=== PATIENT | male | born 1975 | race Hispanic/Latino ===

== ENCOUNTER 2016-08-17 19:06 | Inpatient (IN) | payer OTHER ==
[~2016-08-17] VITALS: Ht 175.3 cm; Wt 65.2 kg
[~2016-08-17 19:06] MED LIST: ALBU18HF INH; ALBU8.5H2 INHALATION; BECL8.7A6 INH; HYDR-656 PO; LORA-303 PO; MIRT15TA PO; MIRT15TA6 PO
[2016-08-17 19:21] VITALS: BP 114/77; PULSE 96; RESP 20; O2SAT 93
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
[2016-08-17] MEDS ORDERED: cefTRIAXone Inj 2,000 MG in IV Premix 1 EACH IV ONE (20:55)
[2016-08-17 21:14] VITALS: BP 118/78; PULSE 91; RESP 16; O2SAT 95
[2016-08-17 21:24] LABS: BASOPHILS % (AUTO) 0.1 % (0-3); EOSINOPHILS % (AUTO) 0.1 % (0-5); MONOCYTES % (AUTO) 2.4 % (4-12); Mean Corpuscular Hemoglobin 30.9 pg (27.0-35.0); Mean Corpuscular Volume 87.7 fL (81-100); NEUTROPHILS % (AUTO) 94.9 % (40-74); Platelet Count 209 bil/L (150-400)
[2016-08-17] MEDS ORDERED: 0.9% Sodium Chloride 1,000 ML IV SCH (21:30)
[2016-08-17] MEDS ORDERED: Albuterol 2.5 mg/3 mL Inhalation Solution NEB ONE (22:15)
[2016-08-17 22:20] VITALS: BP 117/75; PULSE 84; RESP 18; O2SAT 95
[2016-08-17 22:34] VITALS: PULSE 80; RESP 18; O2SAT 100
[2016-08-17] MEDS ORDERED: Albuterol 2.5 mg/3 mL Inhalation Solution NEB PRN (23:00)
[2016-08-17] MEDS ORDERED: Polyethylene Glycol (PEG) 17 Gm Powder PO PRN (23:00)
[2016-08-17] MEDS ORDERED: Alum-Mag Hydrox-Simeth 30 mL Suspension PO PRN (23:00)
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
[2016-08-17 23:19] VITALS: BP 122/76; PULSE 94; RESP 18; O2SAT 94
[2016-08-17 23:21] LABS: INR 1.12 ratio
[2016-08-17 23:35] LABS: Magnesium 2.3 mg/dL (1.6-2.6)
[2016-08-18] VITALS (13 sets, daily range): BP systolic 104–119; BP diastolic 66–81; PULSE 70–96; RESP 16–18; O2SAT 92–97
[2016-08-18 01:50] LABS: APPEARANCE,URINE CLEAR (CLEAR,HAZY); COLOR,URINE YELLOW (YELLOW); OCCULT BLOOD,URINE LARGE (NEGATIVE); PH,URINE 6.5 (5.0-8.0); UROBILINOGEN,URINE NORMAL (NORMAL)
--- NOTE | 2016-08-18 01:57 | NUR ---
Admit Note Pt arrived to room 3006, alert and oriented. Pulled IV out accidently, new one restarted with some difficulty. IV antibiotics now complete. SBA to bathroom due to weakness.
[2016-08-18] MEDS ORDERED: BUSP5TAB3 PO (03:59)
[2016-08-18] MEDS ORDERED: LORA1TAB (03:59)
[2016-08-18] MEDS ORDERED: IBUP800T28 PO (03:59)
[2016-08-18] MEDS ORDERED: HYDR-4003 PO (03:59)
[2016-08-18] MEDS: Albuterol-Ipratropium 3 mL Inhalation Solution NEB SCH ×5 (06:15→20:22)
[2016-08-18] MEDS ORDERED: HYDROXYZINE HCL 25 MG PO PRN (06:45)
--- NOTE | 2016-08-18 06:47 | NUR ---
Refused RT Per RT patient refused treatment because it "makes him sick". Then not even 30 min later pt very agitated and saying "I am going to here like my mother did" and yelling out to other nurse and DIRECTOR STAGE, Pt aggrevated that he cannot breath and cannot even get a respiratory treatment. paged as pt requesting Ibuprofen and "other medications". No answer yet from . Will pass on to dayshift RN to resolve.
[2016-08-18 08:20] LABS: EOSINOPHILS % (AUTO) 0 % (0-5); Mean Corpuscular Hemoglobin 31.2 pg (27.0-35.0); Mean Corpuscular Volume 87.3 fL (81-100); Platelet Count 201 bil/L (150-400)
[2016-08-18] MEDS: Fluticasone 100 mCg Inhaler INHALATION SCH (08:30)
[2016-08-18] MEDS ORDERED: Influenza (Adult) Vaccine 0.5 mL Syringe IM ONE (08:30)
[2016-08-18] MEDS: Azithromycin Inj 500 MG in Dextrose 5% w/Vial Mate 250 ML IV SCH (08:48)
[2016-08-18 08:52] LABS: Magnesium 2.2 mg/dL (1.6-2.6); Phosphorus 2.7 mg/dL (2.5-4.9)
[2016-08-18 08:57] LABS: BASOPHILS % (AUTO) 0 % (0-3); MONOCYTES % (AUTO) 3 % (4-12); NEUTROPHILS % (AUTO) 81 % (40-74)
[2016-08-18] MEDS ORDERED: PRED50TA PO (09:15)
[2016-08-18] MEDS ORDERED: LEVO500T79 PO (09:15)
[2016-08-18] MEDS ORDERED: ONDA4TAB12 PO (09:15)
--- NOTE | 2016-08-18 09:24 | NUR ---
Social Work: Screening Data: Pt is a 41 y/o male admitted for pneumonia post influenze with hemoptysis. Pt's PCP is not listed, pt's insurance is [facility]. EMR reviewed. Per H&P, pt has history of alcohol and marijuana use but does not specify amounts. CD assessment may be needed for pt. TITLE LAWYER will continue to follow. Likely no D/C planning needs. Assessment: Pt who is independent at baseline. Plan: Pt will d/c home via POV when medically stable. TITLE LAWYER will check in regarding alcohol and marijuana use. TITLE LAWYER will continue to follow. THERESA Lin
[2016-08-18] MEDS ORDERED: LORazepam 1 mg Tablet PO ONE ×3 (09:25→19:33)
--- NOTE | 2016-08-18 09:54 | DRSVH ---
PROCEDURE: X-RAY CHEST ONE VIEW, PORTABLE ([id number]) INDICATIONS: dyspnea TECHNIQUE: One view of the chest was acquired. COMPARISON: None. FINDINGS: Surgical changes and devices: None. Lungs and pleura: Patchy infiltrate in the right lower lobe and right middle lobe are present consist ent with right-sided pneumonia. Compared to the film earlier in the day the no change is seen. Mediastinum: Mediastinal contours appear normal. Heart size is normal. Bones and chest wall: No suspicious bony lesions. Overlying soft tissues appear unremarkable. IMPRESSION: Right lower lobe pneumonia. Unchanged since the film 12 hours prior. Dictated by: Gabino Buchanan M.D. on 08/18/2016 at 9:52 Approved by: Gabino Buchanan M.D. on 08/18/2016 at 9:52
[2016-08-18] MEDS ORDERED: Thiamine Inj 100 MG, Folic Acid Inj 1 MG, Magnesium Sulfate 50% Inj 2 GM, Multivitamins... IV ONE ×5 (10:40)
[2016-08-18] MEDS: hydrOXYzine Pamoate 25 mg Capsule PO PRN ×2 (11:58→19:38)
[2016-08-18] MEDS ORDERED: HYDROcodone-APAP 5-325 mg Tablet PO ONE ×2 (11:59→23:03)
[2016-08-18] MEDS: LORazepam 1 mg Tablet PO PRN ×2 (11:59→19:38)
[2016-08-18] MEDS: HYDROcodone-APAP 5-325 mg Tablet PO PRN ×3 (11:59→23:59)
--- NOTE | 2016-08-18 16:17 | PCM.PNMED ---
Subjective Date of Service Aug 18, 2016 Subjective Overnight: No acute events reported Today: States he is upset regarding medication delivery. Health concerns include his general fatigue, chills. Denies any nausea, vomiting; tolerating po well. Exam Vital Signs Vital Sign - Last Date Time Temp Pulse Resp B/P Pulse Ox O2 Delivery O2 Flow Rate FiO2 08/18/16 14:36 36.2 83 16 111/69 92 Room Air Intake and Output 08/17/16 08/17/16 08/18/16 Cumulative From/Thru 15:00 23:00 07:00 08/17/16 19:21 - 08/18/16 05:00 Intake Total 2000 ml 436 ml 2436 ml Output Total 1000 ml 1000 ml Balance 2000 ml -564 ml 1436 ml Intake Oral 436 ml 436 ml IV Total 2000 ml 2000 ml Output Urine Total 1000 ml 1000 ml Exam General: No acute distress, well-developed, well-nourished HEENT: Normocephalic, atraumatic. Anicteric sclerae, moist conjunctivae. Oropharynx free of erythema with moist mucosa. Neck: Supple. Trachea midline Cardiovascular: Regular rate and rhythm with no murmurs, rubs, or gallops appreciated Pulmonary: BL coarse sounds at bases to midfields; faint BL upper wheeze Abdomen: Bowel tones present. Soft. Nondistended. Extremities: No edema Skin: Normal temperature, turgor, and texture Neurological: Cranial nerves grossly intact. Psychiatric: Improved mood. Alert and oriented to person, place, and time. Lab and Diagnostics Result Diagram: 08/18/16 0751 08/18/16 0751 X-Rays, CTs and MRIs Prelim for CXR shows RLL infiltrate 12-lead ECG Pending Assessment & Plan Mr. Ulloa is a 41 year old gentleman with history of EtOH use disorder, opiate use, and reported recent infection with influenza, that was treated with Tamiflu without resolution of symptoms. He stated that his symptoms of fever, chills, SOB, and generalized pain returned, and he sought emergent care. He was admitted for evaluation and treatment of suspected secondary bacterial PNA with primary influenza infection. - Hospital day 2 Strep pneumoniae pneumonia, acute, present on admission. Under therapy - S pneu Ur 08/18: POSITIVE - Ceftriaxone 2g q24h - Convert to po in 1-2 days Influenza infection of unknown strain, acute, suspected present on admission. Under therapy - Reports recent infection and tx with Tamiflu - Continue Tamiflu - Resp PCR Right lower lobe PNA, acute, present on admission. Under therapy - Likely secondary to one or both from above - CXR 08/17: RLL PNA seen - Continue ceftriaxone, azithromycin at this time, awaiting PCR - PNA can be multifactorial: S. pneu, influenza A, other viral source; await all test results - Duonebs QIDWA - Accunebs q2h prn - Tessalon perles - Mucinex 1200mg q12h - PCT in am (previous 2.88, 3.40) Hyponatremia, acute, present on admission. Resolved - On admit: 130; current 135 - Recheck in a.m. Acute hemoptysis, present on admission. Resolving - Likely secondary to coughing spells - Avoid anticoagulants at this time History of EtOH abuse, present on admission. Presumed stable - Pt reports last drink 08/02/2016 - CIWA in place - Continue thiamine/folate/MV at DC Tobacco abuse, chronic. Presumed stable - Nicotine patch prn - Cessation provided Right fifth metacarpal fracture, acute, present on admission. Monitor - Pt reports has FU with ortho Friday, 08/20; not verified - If pt still hospitalized 08/20- consult ortho - PRN: Fever/antiemetics/pain/bowel - GI: H2B - DVT: SCDs only secondary to reported hemoptysis - Diet: General - Code: FULL CODE Dispo: Likely to remain additional 1-2 days pending medical stability and test results. With current information, can transition to po abx for DC. Anticipated needs include EtOH, tobacco resources, if patient willing to accept. He states he has made significant progress in life improvements. Pain Evaluation: Adequate Pain Control GI Prophylaxis: H2 ezra VTE Mechanical Devices: Intermittant Pneumatic CD Resuscitation Status: CPR: Attempt Resuscitation Attending Statement The patient was seen and examined together with Dr. Braga on 08/18/2016 and I agree with the history, exam and plan as outlined in the note above. Sunni Braga DO Aug 18, 2016 16:17 Jose Ingram MD Aug 19, 2016 09:11
--- NOTE | 2016-08-18 16:27 | NUR ---
CIWA CIWA protocol started due to patient history of alcohol and marijuana use. Patient current CIWA 1, highest CIWA score this shift 6. Difficult to assess whether current agitation/irritability, tremor is baseline or substance use. Patient overheard on phone, requested going to rehab as a Deangelo present.
[2016-08-18] MEDS: guaiFENesin 600 mg ER12 Tablet PO SCH (19:38)
[2016-08-18] MEDS: cefTRIAXone Inj 2,000 MG in IV Premix 1 EACH IV SCH (19:39)
[2016-08-19] VITALS (13 sets, daily range): BP systolic 112–145; BP diastolic 76–93; PULSE 69–94; RESP 16–18; O2SAT 95–99
[2016-08-19] MEDS: Albuterol-Ipratropium 3 mL Inhalation Solution NEB SCH ×6 (00:30→20:09)
[2016-08-19] MEDS ORDERED: LORazepam 1 mg Tablet PO ONE ×2 (03:46→15:31)
[2016-08-19] MEDS: LORazepam 1 mg Tablet PO PRN ×3 (04:00→15:55)
--- NOTE | 2016-08-19 04:55 | NUR ---
CIWA/pain CIWA score was 1. Ativan given x2 this shift per pt's request for anxiety - effective. Ibuprofen and [place] given per pt's request for R pinky and back pain with good relief. Pt has been independent in the room w/o SOB and with steady gait. SpO2 in mid 90s on RA. still has sharif/beasley sputum. VSS, afebrile.
[2016-08-19 06:24] LABS: Mean Corpuscular Hemoglobin 31.1 pg (27.0-35.0); Mean Corpuscular Volume 89.4 fL (81-100); Platelet Count 197 bil/L (150-400)
[2016-08-19 07:04] LABS: Magnesium 1.9 mg/dL (1.6-2.6); Phosphorus 2.5 mg/dL (2.5-4.9)
[2016-08-19] MEDS: guaiFENesin 600 mg ER12 Tablet PO SCH ×2 (07:59→21:43)
[2016-08-19] MEDS: Multivit-Miner-Folic Acid-Iron Tablet PO SCH (07:59)
[2016-08-19] MEDS: HYDROcodone-APAP 5-325 mg Tablet PO PRN ×3 (08:00→21:44)
[2016-08-19] MEDS ORDERED: HYDROcodone-APAP 5-325 mg Tablet PO ONE ×3 (08:00→21:44)
[2016-08-19] MEDS: Azithromycin Inj 500 MG in Dextrose 5% w/Vial Mate 250 ML IV SCH (08:00)
[2016-08-19 08:29] LABS: BASOPHILS % (AUTO) 0 % (0-3); EOSINOPHILS % (AUTO) 1 % (0-5); MONOCYTES % (AUTO) 10 % (4-12); NEUTROPHILS % (AUTO) 76 % (40-74)
[2016-08-19] MEDS: Fluticasone 100 mCg Inhaler INHALATION SCH (08:30)
[2016-08-19] MEDS: hydrOXYzine Pamoate 25 mg Capsule PO PRN ×2 (09:27→15:55)
--- NOTE | 2016-08-19 13:29 | PCM.PNMED ---
Subjective Date of Service Aug 19, 2016 Subjective Aayush continues to have a cough, but denies any current sputum production. Denies any chills, but admits to generalized fatigue. Exam Vital Signs Vital Sign - Last Date Time Temp Pulse Resp B/P Pulse Ox O2 Delivery O2 Flow Rate FiO2 08/19/16 11:28 78 18 96 Room Air 08/19/16 09:39 36.6 136/92 Intake and Output 08/18/16 08/18/16 08/19/16 Cumulative From/Thru 15:00 23:00 07:00 08/17/16 19:21 - 08/19/16 06:58 Intake Total 2464 ml 1276 ml 6176 ml Output Total 800 ml 675 ml 2475 ml Balance 1664 ml 601 ml 3701 ml Intake Oral 1120 ml 1276 ml 2832 ml IV Total 1344 ml 3344 ml Output Urine Total 800 ml 675 ml 2475 ml # Bowel Movements 0 0 Exam General: Patient ambulating within the room, no acute distress HEENT: mucus membranes moist, sclera anicteric Cardiac: RRR, no murmur, rub or gallop Respiratory: Good inspiratory effort. Diffuse wheezing, heard prior to placement of the stethoscope. Extremities: No clubbing, cyanosis, or edema b/l. Neuro: Awake, alert, and oriented. Grossly normal Lab and Diagnostics Result Diagram: 08/19/16 0600 08/19/16 0600 Microbiology POSITIVE Strep pneumoniae urine antigen X-Rays, CTs and MRIs CXR 08/17/16: IMPRESSION: Right lower lobe pneumonia. Unchanged since the film 12 hours prior. Dictated by: Gabino Buchanan M.D. on 08/18/2016 at 9:52 Assessment & Plan Mr. Ulloa is a 41yo male with history of EtOH use disorder, opiate use, and reported recent infection with influenza, that was treated with Tamiflu without resolution of symptoms. His symptoms of fever, chills, SOB, and generalized pain returned, and thus he presented to [facility] emergency department. He was admitted for evaluation and treatment of acute bacterial pneumonia in the setting of influenza infection. Hospital day #3 1. Strep pneumoniae right lower lobe pneumonia, acute, present on admission. - Urine antigen positive - Ceftriaxone 2g q24h - Duonebs 4 times daily while awake - Accunebs q2h prn - Anticipate transition to oral antibiotic therapy tomorrow 2. Influenza infection of unknown strain, acute, suspected present on admission. Under therapy - Reports recent infection and outpatient treatment with Tamiflu - Continue Tamiflu 3. Acute hemoptysis, present on admission. Resolved - Likely secondary to coughing spells - Avoid anticoagulants at this time 4. History of ETOH abuse, present on admission. Presumed stable - Pt reports last drink 08/02/2016 - Continue thiamine/folate/MV - Will benefit from outpatient primary care follow up 5. Tobacco abuse, chronic. Presumed stable - Nicotine patch daily - Cessation information provided 6. Right fifth metacarpal fracture, acute, present on admission. Monitor - Pt reported having a follow up with ortho scheduled for tomorrow, will talk with ortho as he will still be here tomorrow 7. Hyponatremia, acute, present on admission. Resolved - On admit: 130; current 140 - PRN acetaminophen: Fever/pain - PRN ondansetron for nausea - DVT: SCDs only, secondary to hemoptysis - Diet: General Dispo: Likely to remain additional 1 day. Anticipate transition to oral antibiotic therapy tomorrow and discharge. GI Prophylaxis: H2 ezra VTE Mechanical Devices: Intermittant Pneumatic CD Resuscitation Status: CPR: Attempt Resuscitation Attending Statement The patient was seen and examined together with Dr. Cast on 08/19/2016 and I agree with the history, exam and plan as outlined in the note above. Juli Cast DO Aug 19, 2016 13:18 Jose Ingram MD Aug 19, 2016 15:19
--- NOTE | 2016-08-19 16:20 | NUR ---
Social Work-attempted CD assessment: Data:EMR Reviewed. SW attempted to see pt today to complete CD assessment. Pt's CIWA currently 1. First attempt, pt showering, and then later RN in room. SW to follow up tomorrow to complete. SW will continue to follow. Assessment:Pt who would benefit from CD assessment. Plan:SW to follow up tomorrow with CD assessment. SW will continue to follow. THERESA Morrissey
--- NOTE | 2016-08-19 18:15 | NUR ---
Pain/anxiety Pt reports 8/10 pain in R hand, lower back and hip. [place], Vistaril, and Lorazepam given as requested for anxiety and pain. Ice packs offered and accepted for hand and back Re-assessment revealed pain level decreased to 6/10, Ibuprofen given. Frequent rounding in place, will continue to monitor
[2016-08-19] MEDS: cefTRIAXone Inj 2,000 MG in IV Premix 1 EACH IV SCH (21:42)
[2016-08-20] VITALS (10 sets, daily range): BP systolic 120–140; BP diastolic 78–95; PULSE 72–91; RESP 16–18; O2SAT 93–98
[2016-08-20] MEDS: Albuterol-Ipratropium 3 mL Inhalation Solution NEB SCH ×6 (00:24→20:30)
[2016-08-20] MEDS ORDERED: LORazepam 1 mg Tablet PO ONE ×3 (01:02→15:21)
[2016-08-20] MEDS: hydrOXYzine Pamoate 25 mg Capsule PO PRN ×3 (01:03→23:31)
[2016-08-20] MEDS: LORazepam 1 mg Tablet PO PRN ×3 (01:03→15:22)
--- NOTE | 2016-08-20 06:01 | NUR ---
Pain Pt complained of pain 01/18. Administered [place], effective. Pt rested through most of the night with no s/sx of pain or discomfort. Call light within reach, using appropriately. Pleasant and cooperative with care.
[2016-08-20 06:59] LABS: Mean Corpuscular Hemoglobin 30.6 pg (27.0-35.0); Platelet Count 249 bil/L (150-400)
[2016-08-20] MEDS: HYDROcodone-APAP 5-325 mg Tablet PO PRN ×4 (07:33→23:31)
[2016-08-20] MEDS ORDERED: HYDROcodone-APAP 5-325 mg Tablet PO ONE ×4 (07:33→23:31)
[2016-08-20] MEDS: Fluticasone 100 mCg Inhaler INHALATION SCH (08:15)
[2016-08-20] MEDS: Multivit-Miner-Folic Acid-Iron Tablet PO SCH (08:15)
[2016-08-20] MEDS: guaiFENesin 600 mg ER12 Tablet PO SCH ×2 (08:15→19:38)
[2016-08-20 08:29] LABS: BASOPHILS % (AUTO) 0 % (0-3); EOSINOPHILS % (AUTO) 0 % (0-5); MONOCYTES % (AUTO) 13 % (4-12); NEUTROPHILS % (AUTO) 65 % (40-74)
--- NOTE | 2016-08-20 10:22 | NUR ---
Social Work-readiness for discharge: Data:EMR reviewed. Pt is on day 3 of hospitalization for pneumonia per H&P. Pt may be ready to discharge later today. SW met with pt to complete CD assessment and discuss discharge planning, SW role explained. Pt informed SW that he has been clean and sober for 3 years from drugs and about a month from ETOH. Pt states his Deangelo present to himself was sobriety. Pt states he has never been to treatment and has done it all on his own. Pt is goal oriented speaking about wanting to get back into his children's lives and taking the steps to staying sober. Pt declining any CD resources. Pt states currently he has been homeless, couch surfing with friends when he can. SW discussed [place] [facility] [place],etc. Pt states he [place] go to [place] [facility], he would rather stay in a tent. SW discussed [facility], housing resources,etc. Pt declining all resources stating he has done this before. Pt has an appointment with [facility] on 08/27 at 2pm, SW encouraged pt to go to this appointment. Pt is working on getting ahold of his friend to stay with at discharge, if not pt will discharge back to homelessness. SW provided phone number on board and plan. No other discharge needs identified. SW will continue to follow if needs arise. Assessment:Pt who is declining all resources. Plan:Pt to either discharge home with friend or back to homelessness. Pt is declining all resources from SW. No other discharge needs identified. SW will continue to follow if needs arise. THERESA Morrissey
--- NOTE | 2016-08-20 10:41 | NUR ---
AMA Pt left unit this morning at approximately 1015, stated to SCIENTIFIC RESEARCH MANAGER, "Don't touch anything, leave everything here.". This RN and tow operator searched inside hospital and outside parking lots unsuccessfully. Pt left unit with IV intact. notified that pt left AMA. Shortly after, pt back in his room, very agitated. Pt voiced frustration that he had not been seen by ortho. This RN and tow operator in room, explained hospital policy to not leave unit. Pt stated that he told SCIENTIFIC RESEARCH MANAGER he was going outside to smoke and she said that was fine. Per SCIENTIFIC RESEARCH MANAGER, this exchange did not happen, pt just stated to not touch belongings and left unit. aware that pt is back on unit. Addendum: 08/21/16 at 0712 by HORACE YI RN Pt refusing to wear TELE, paged for a dc TELE order.
--- NOTE | 2016-08-20 12:42 | NUR ---
Behavior, aggression Patient is highly aggravated at times during AM shift, stating that he has no been seen by doctors and has been disrespected by staff. Patient appears anxious and is observed breathing slowly and forcefully with mild trembling of hands. Multiple attempts to reason with patient and clarify concerns by both primary and charge RNs is partially successful. Patient continues to use profanity and state that "everyone in this hospital are idiots". PRN medications provided for anxiety. Patient states that he "does not know what is going on". Primary Blue team MD is aware and reports that patient has had plan of care clearly explained to him each day. Patient educated on hospital policy, not leaving floor and the need to treat staff with respect and avoid making threats. Patient states he understands. Bed low and locked, call light in reach, care and frequent rounding ongoing.
--- NOTE | 2016-08-20 18:52 | PCM.PNMED ---
Subjective Date of Service Aug 20, 2016 Subjective Aayush states that he is not feeling any better than he felt yesterday, he continues to cough with sharif colored sputum. Denies any dyspnea. He is worried that he does not have a place to live after discharge. He states that he is really worried about his right wrist and right 5th digit which is painful. He left the hospital for a few minutes today following stating "if you're not going to have the orthopedist take care of my arm today, then I'll just cut it off and leave it on your doorstep." He then returned to his room pleasant and stating that he is willing to wait to see the orthopedist at his scheduled appointment next week. Exam Vital Signs Vital Sign - Last Date Time Temp Pulse Resp B/P Pulse Ox O2 Delivery O2 Flow Rate FiO2 08/20/16 16:49 36.8 91 16 140/95 93 Room Air Intake and Output 08/19/16 08/19/16 08/20/16 Cumulative From/Thru 15:00 23:00 07:00 08/17/16 19:21 - 08/20/16 06:45 Intake Total 300 ml 1916 ml 535 ml 8927 ml Output Total 1600 ml 1200 ml 5275 ml Balance 300 ml 316 ml -665 ml 3652 ml Intake Oral 1916 ml 535 ml 5283 ml IV Total 300 ml 3644 ml Output Urine Total 1600 ml 1200 ml 5275 ml # Bowel Movements 0 Exam General: Patient ambulating within the room and out in the sauceda, no acute distress HEENT: mucus membranes moist, sclera anicteric Cardiac: RRR, no murmur, rub or gallop Respiratory: Good inspiratory effort. Diffuse wheezing, bilateral rhonchi. Extremities: No clubbing, cyanosis, or edema b/l. The right wrist is in a soft splint. Neuro: Awake, alert, and oriented. Grossly normal. Psychiatric: Fluctuating affect, anxious at times, agitated at times, and normal at times IVs and Medications Medications Reviewed: Medications were reviewed in detail Lab and Diagnostics Result Diagram: 08/20/16 0550 08/19/16 0600 Microbiology POSITIVE Strep pneumoniae urine antigen X-Rays, CTs and MRIs CXR 08/17/16: IMPRESSION: Right lower lobe pneumonia. Unchanged since the film 12 hours prior. Dictated by: Gabino Buchanan M.D. on 08/18/2016 at 9:52 Assessment & Plan Mr. Ulloa is a 41yo male with history of EtOH use disorder, opiate use, and reported recent infection with influenza, that was treated with a full outpatient course of Tamiflu without resolution of symptoms. His symptoms of fever, chills, SOB, and generalized pain returned, and thus he presented to [facility] emergency department. He was admitted for evaluation and treatment of acute bacterial pneumonia in the setting of influenza infection. Hospital day #4 1. Strep pneumoniae right lower lobe pneumonia, acute, present on admission. - Urine antigen positive - Ceftriaxone 2g given for 3 days, transitioning to Amoxicillin 1g BID to complete a total of 7 days of antibiotic therapy - Duonebs 4 times daily while awake - Accunebs q2h prn 2. Influenza infection of unknown strain, acute, suspected present on admission. - Reports recent infection and outpatient treatment with Tamiflu - Continue Tamiflu to complete a 5 day course here 3. Acute hemoptysis, present on admission. Resolved - Likely secondary to coughing spells - Avoid anticoagulants at this time 4. History of ETOH abuse, present on admission. Presumed stable - Pt reports last drink 08/02/2016 - Continue thiamine/folate/MV - Will benefit from outpatient primary care follow up 5. Tobacco abuse, chronic. Presumed stable - Nicotine patch daily - Cessation information provided 6. Right fifth metacarpal fracture, acute, present on admission. Monitor - Acetaminophen PRN pain - Orthopedics to see him as an outpatient for his next week - PRN ondansetron for nausea - DVT: SCDs only, secondary to hemoptysis - Diet: General Dispo: Anticipate discharge tomorrow VTE Mechanical Devices: Intermittant Pneumatic CD Resuscitation Status: CPR: Attempt Resuscitation Attending Statement The patient was seen and examined together with Dr. Cast on 08/20/2016 and I agree with the history, exam and plan as outlined in the note above. Juli Cast DO Aug 20, 2016 18:37 Jose Ingram MD Aug 21, 2016 10:33
--- NOTE | 2016-08-20 21:50 | NUR ---
Mentation on shift change patient started screaming in hallway about wanting to see a Dr. immediately. Began orientation process, however patient began talking about unresolved pain, nausea, his mother who he held in his arms and this hospital is to blame for everything. Then patient began stating "I have recorded your face" indicating some minor threat of violence was impending. At this point security was called and the charge authorizerDOREEN Black began questioning what she could do to help. Patient went back inside room and began talking about how he wants to "rape all the rapists and kill all the gangsters on the street" and implement "street justice." Administered 5mg Valium. Patient resting quietly since.
--- NOTE | 2016-08-20 22:25 | NUR ---
Telemetry no intervention charted for telemetry d/c last shift. Box 56 per Sat Instructor is being used on another patient. Apparently patient in 3006 has been refusing to wear the telemetry and was notified.
--- NOTE | 2016-08-20 23:06 | NUR ---
c/o nausea went to room and stated its too soon for Zofran but there are two other medications....at this point the patient began screaming that he doesn't want Zofran and wasn't asking for Zofran. Told me to get out of his room because he will be throwing up all night and multiple obscenities and derisions later I stopped trying to communicate and left the room. Informed charge master coordinator that this patient may require a female nurse or someone else as I am a threat in some way: "I will woop his ass if he comes in here I heard him saying he wouldn't put in the IV because I have strep" ...this is not true and witnessed as not true by charge master coordinator. IV therapy was called because of agitation/aggression.
--- NOTE | 2016-08-20 23:35 | NUR ---
BEHAVIOR/AGITATION At the beginning of shift pt. found to be screaming in the hallway "I am in pain, get me a fucking doctor, where is the fucking doctor?" Several staff members trying to calm patient down. Security called to assist with this situation. Nursing plant engineering supervisor called to come assist as well. I went in to the patient's room. Pt. still screaming for a doctor. I asked what he needed. "I need you to step it up. This is a new year and you need to step up your care. Do you know what they say about this place on the streets? This place is a fucking joke. My mom here. I wasn't outside smoking earlier. You can check your cameras. I was in room 1001 praying. My mom there. Maybe you would be different if your mom in your arms. That is why I have PTSD. Where is the orthopedic doctor? They said they were fucking coming to see me. My hand fucking hurts. They said they would come to see me and it has been hours. I want my antibiotics! They said I would get rid of this IV-pointed at his arm and take some antibiotics. If I here I will come back with a vengeance." I listened and apologized stating I just got here so what can I do right now to help you? I stated that if he didn't feel he was getting the proper care he could go AMA. I stated that he can't be screaming in the hallways. "I am not screaming. I am nauseated and in pain. You are all just leaving me in here probably because I am [place]." I explained that he was getting antibiotics later this evening. I asked if he needed some Valium to help with his agitation. He said he needed something. I said we could get him something for his nausea. I excused myself to let his primary RN and plant engineering supervisor Kadi who had arrived to the floor the plan. At approximately 2315 pt. again out in sauceda screaming. Pt. fired primary care RN David. Screaming "I heard him say he wouldn't start my IV because I have the flu. Get him out of my fucking room. I don't want to see his fucking face. Tell him to go and mop the cafeteria. Go take a break and smoke your vape you hippie. I have been throwing up and he won't do anything about it!" David was outside of the patient's room this entire time and another nurse Karen was trying to calming patient down. I reassigned the patient to primary care DOREEN Mejia. Karen introduced Jackie to help with establishing rapport and keeping patient calm.
[2016-08-21] MEDS: Albuterol-Ipratropium 3 mL Inhalation Solution NEB SCH ×6 (00:34→19:23)
[2016-08-21 00:35] VITALS: PULSE 116; RESP 18; O2SAT 95
[2016-08-21] MEDS ORDERED: HYDROcodone-APAP 5-325 mg Tablet PO ONE ×4 (03:37→19:38)
[2016-08-21] MEDS: HYDROcodone-APAP 5-325 mg Tablet PO PRN ×4 (03:37→19:38)
[2016-08-21 04:02] VITALS: BP 139/95; PULSE 84; RESP 20; O2SAT 94
--- NOTE | 2016-08-21 04:25 | NUR ---
Behavior/Pain Patient requested at midnight to be woken up for next available PRN pain medication. Woke patient up at 0330, administered PRN [place] and Phenergan per his request. Patient stood up at edge of bed, stretched, and said "I'm weak" and started to lose his balance. Assisted back into bed by RN. Vital signs taken, all within normal limits. Patient appeared diaphoretic and gown was changed per his request. About 0345, patient started moaning and vomiting. Patient also yelling to nobody in the room, said "I hate that fing doctor in the brown gown!". Patient reported that [place] is ineffective, requested IV pain medication. paged with patient's request, awaiting call back. Scored CIWA for patient, 18, for nausea, agitation, pain, and diaphoresis. Administered PRN Diazepam per CIWA protocol. Patient now appears to be sleeping, close monitoring in place.
[2016-08-21 05:26] VITALS: BP 133/92; PULSE 74; RESP 20; O2SAT 96
[2016-08-21 06:25] LABS: Mean Corpuscular Hemoglobin 30.9 pg (27.0-35.0); Mean Corpuscular Volume 88.8 fL (81-100); Platelet Count 290 bil/L (150-400)
[2016-08-21 08:06] LABS: BASOPHILS % (AUTO) 1 % (0-3); EOSINOPHILS % (AUTO) 0 % (0-5); MONOCYTES % (AUTO) 13 % (4-12); NEUTROPHILS % (AUTO) 67 % (40-74)
[2016-08-21] MEDS ORDERED: LORazepam 1 mg Tablet PO ONE ×2 (10:01→18:05)
[2016-08-21] MEDS: Fluticasone 100 mCg Inhaler INHALATION SCH (10:01)
[2016-08-21] MEDS: guaiFENesin 600 mg ER12 Tablet PO SCH ×2 (10:02→21:18)
[2016-08-21] MEDS: LORazepam 1 mg Tablet PO PRN ×2 (10:03→18:06)
[2016-08-21] MEDS: Multivit-Miner-Folic Acid-Iron Tablet PO SCH (10:03)
--- NOTE | 2016-08-21 11:44 | PCM.PNMED ---
Subjective Date of Service Aug 21, 2016 Subjective Aayush states that he is feeling worse today in regards to energy level. He complains of generalized body aches without any localized pain. Per chart review , a iris ge was called yesterday after he went into the sauceda yelling profanities and he became combative with nursing. Exam Vital Signs Vital Sign - Last Date Time Temp Pulse Resp B/P Pulse Ox O2 Delivery O2 Flow Rate FiO2 08/21/16 05:26 36.6 74 20 133/92 96 Room Air Intake and Output 08/20/16 08/20/16 08/21/16 Cumulative From/Thru 15:00 23:00 07:00 08/17/16 19:21 - 08/21/16 06:22 Intake Total 597 ml 350 ml 9874 ml Output Total 5275 ml Balance 597 ml 350 ml 4599 ml Intake Oral 597 ml 350 ml 6230 ml IV Total 3644 ml Output Urine Total 5275 ml # Voids 3 3 6 # Bowel Movements 2 0 2 Exam General: Patient ambulating within the room and doing yoga with complex poses with significant extension of the back, no acute distress HEENT: mucus membranes moist, sclera anicteric Cardiac: RRR, no murmur, rub or gallop Respiratory: Good inspiratory effort. Diffuse wheezing, bilateral rhonchi. Extremities: No clubbing, cyanosis, or edema b/l. The right wrist is in a soft splint. Neuro: Awake, alert, and oriented. Grossly normal. Psychiatric: Alternating affect, agitated at times and normal at times IVs and Medications Medications Reviewed: Medications were reviewed in detail Lab and Diagnostics Result Diagram: 08/21/1640 08/21/16 0540 Microbiology POSITIVE Strep pneumoniae urine antigen X-Rays, CTs and MRIs CXR 08/17/16: IMPRESSION: Right lower lobe pneumonia. Unchanged since the film 12 hours prior. Dictated by: Gabino Buchanan M.D. on 08/18/2016 at 9:52 Assessment & Plan Mr. Ulloa is a 41yo male with history of ETOH use disorder, opiate use, and reported recent infection with influenza, that was treated with a full outpatient course of Tamiflu without resolution of symptoms. His symptoms of fever, chills, SOB, and generalized pain returned, and thus he presented to [facility] emergency department. He was admitted for evaluation and treatment of acute bacterial pneumonia in the setting of influenza infection. Hospital day #4 1. Strep pneumoniae right lower lobe pneumonia, acute, present on admission. - Urine antigen positive - Amoxicillin 1g BID started on 08/20/16, plan a total of 7 days of antibiotic therapy - Ceftriaxone 2g was given for 3 days, completed on 08/20/16 - Duonebs 4 times daily while awake - Accunebs q2h prn 2. Leukocytosis, present on admission -Had been improving each day with treatment of his pneumonia, however, it worsened this morning - UDS ordered as the patient left the hospital yesterday and there is potential for drug use - Blood cultures if this worsens or he becomes febrile - Monitor 3. Influenza infection of unknown strain, acute, suspected present on admission. - Reports recent infection and outpatient treatment with Tamiflu - Continue Tamiflu to complete a 5 day course here 4. History of ETOH abuse, present on admission. Presumed stable - Pt reports last drink 08/02/2016 - Continue thiamine/folate/MV - Will benefit from outpatient primary care follow up 5. Tobacco abuse, chronic. Presumed stable - Nicotine patch daily - Cessation information provided 6. Right fifth metacarpal fracture, acute, present on admission. Monitor - Acetaminophen PRN pain - Orthopedics to see him as an outpatient for his next week - PRN ondansetron for nausea - Diet: General VTE Prophylaxis: Sub-Q Heparin (Unfractionated) VTE Mechanical Devices: Intermittant Pneumatic CD Resuscitation Status: CPR: Attempt Resuscitation Attending Statement The patient was seen and examined together with Dr. Cast on 08/21/2016 and I agree with the history, exam and plan as outlined in the note above. Juli Cast DO Aug 21, 2016 11:43 Jose Ingram MD Aug 22, 2016 13:55
--- NOTE | 2016-08-21 11:55 | NUR ---
Behavior/nausea/pain/IV Pt c/o nausea with some retching and approx 5ml of bile into basin upon awakening this AM. PRN antiemetic given with effective results. Pt also c/o R hand finger pain for which analgesic was given. Pt in room, doing yoga poses (laying backwards off foot of bed, laying on back with legs in the air, etc). Shortly after, pt c/o to this RN that "my pain is worse than ever" and "I've never felt this bad before." Pt requesting IV pain medication (MD had stated no to this earlier in shift). Pt pulled out IV stating, "I didn't think I needed it anymore." Pt eating ice cream, drinking soda while c/o nausea and abd discomfort. Attempts to follow pt's thought train difficult at times as he will go on a tirade talking about RN's, MD's that he's encountered, chaplains, his children, making a will, etc. notified that pt pulled IV out.
[2016-08-21 14:53] VITALS: BP 137/82; PULSE 83; RESP 18; O2SAT 94
--- NOTE | 2016-08-21 16:22 | NUR ---
Behavior/IV Pt becoming increasingly agitated this afternoon. States he wants "all medications taken away, just let me ." Pt states he's going to "jump out the window, slam my head against the wall or slam my fucking hand in the door." Pt continued a tirade against rapists and President-elect Trump and [facility]. Pt stated he wanted a NOC RN's last name "so I can find him and wipe him off this planet. I've done it before and I'll do it again." Pt swearing and yelling and c/o dehydration despite intake of water and other liquids. Pt went to BR then returned with urinal for UA which contained approx 50cc of clear, pale yellow urine and stated, "See, I'm so dehydrated I'm hardly peeing." Shortly after, while this RN was observing pt from window, he laid down on floor then began hitting cabinet stating, "I need help up! I'm so weak I can't even stand!" This RN entered room and advised him to stand up so no injuries occurred and pt stood ind to return to bed. MD on unit and went in to talk with pt who was then calm and complacent with no complaints. aware that pt pulled out his IV and states it is okay to keep IV out for now.
[2016-08-21] MEDS: Heparin 5,000 Unit/mL Inj SUBQ SCH (17:17)
[2016-08-21 19:24] VITALS: PULSE 92; RESP 16; O2SAT 95
[2016-08-21 21:17] VITALS: BP 103/72; PULSE 91; RESP 18; O2SAT 96
[2016-08-22] MEDS ORDERED: HYDROcodone-APAP 5-325 mg Tablet PO ONE ×3 (00:33→12:19)
[2016-08-22] MEDS: Heparin 5,000 Unit/mL Inj SUBQ SCH ×2 (00:33→09:51)
[2016-08-22] MEDS: HYDROcodone-APAP 5-325 mg Tablet PO PRN ×3 (00:33→12:19)
[2016-08-22 05:59] VITALS: BP 118/86; PULSE 82; RESP 18; O2SAT 97
[2016-08-22] MEDS: LORazepam 1 mg Tablet PO PRN (06:18)
[2016-08-22] MEDS ORDERED: LORazepam 1 mg Tablet PO ONE (06:18)
[2016-08-22 07:07] LABS: Mean Corpuscular Hemoglobin 31.2 pg (27.0-35.0); Mean Corpuscular Volume 89.7 fL (81-100); Platelet Count 260 bil/L (150-400)
[2016-08-22] MEDS: Albuterol-Ipratropium 3 mL Inhalation Solution NEB SCH (07:22)
[2016-08-22 07:23] VITALS: PULSE 94; RESP 16; O2SAT 96
[2016-08-22 07:55] LABS: NEUTROPHILS % (AUTO) 81 % (40-74)
[2016-08-22 07:56] LABS: BASOPHILS % (AUTO) 0 % (0-3); EOSINOPHILS % (AUTO) 0 % (0-5); MONOCYTES % (AUTO) 6 % (4-12)
[2016-08-22] MEDS: Fluticasone 100 mCg Inhaler INHALATION SCH (09:49)
[2016-08-22] MEDS: Multivit-Miner-Folic Acid-Iron Tablet PO SCH (09:50)
[2016-08-22] MEDS ORDERED: HYDR-4003 PO (11:21)
[2016-08-22] MEDS ORDERED: AMOX500T2 PO (11:21)
--- NOTE | 2016-08-22 11:30 | PCM.DIMED ---
Juli Cast DO 08/22/16 1130: Discharge Instructions Date of Service Aug 22, 2016 Dates of Hospitalization Aug 17, 2016 at 22:42 Discharge Diagnosis Discharge Diagnosis Strep pneumoniae right lower lobe pneumonia, acute, improved Leukocytosis, improved Influenza infection of unknown strain, treated History of ETOH abuse, no recent use, stable Tobacco abuse, chronic. Right fifth metacarpal fracture, acute, present on admission. Medication Instructions Make sure that you take Amoxicillin 2 tablets (each is 500mg) by mouth twice daily for 5 days. For pain, you may take 1 tablet of hydrocodone-acetaminophen by mouth every 4- 6hours as needed; this medication can make you drowsy, so be careful. Also, make sure that you do not exceed 4000mg of acetaminophen ( and it is found in many over the counter medications) in a 24hour period as that may cause liver failure and . It is okay to take less than 4000mg of acetaminophen per day from all sources. Please refrain from taking ibuprofen as it may delay bone healing. Diet No restrictions Activity No restrictions, Other (Please quit smoking both marijuana and tobacco as smoking both is harmful to your lungs and overall health) Call your provider Fever or Chills, Shortness of breath, Bleeding, Chest pain, Vomitting, Excessive diarrhea, Weakness (unilateral) Patient Instructions Follow-up plan keep your scheduled appointment with orthopedics for evaluation and treatment of your right 5th finger. Follow-up Provider: [facility] Follow-up with PCP in: 1 week (This appointment will be for a follow up of your pneumona) Jose Ingram MD 08/22/16 1355: Juli Cast DO Aug 22, 2016 11:30 Jose Ingram MD Aug 22, 2016 13:55
[2016-08-22 11:53] VITALS: BP 125/82; PULSE 78; RESP 18; O2SAT 96
--- NOTE | 2016-08-22 12:02 | NUR ---
Social Work: Discharge Data: Pt is on day 5 of hospitalization. EMR reviewed, pt discussed in rounds. D/C orders are in. Pt has declined resources. No further d/c planning needs at this time. SEPTIC TANK SERVICE TECHNICIAN will continue to follow if needs arise. Assessment: Pt who is independent at baseline. Homeless. Plan: Pt will d/c to community, likely to a friends home. Pt has declined resources. No further d/c planning needs at this time. SEPTIC TANK SERVICE TECHNICIAN will continue to follow if needs arise. THERESA Lin
--- NOTE | 2016-08-22 12:24 | NUR ---
Behavior and discharge Patient continues to be very aggressive towards staff. Continues to make statements such as "I'm going to blow this [facility] up". "I'm a fucking [place]. Is that why you won't give me pain meds?!" Informed patient that this hospital and any staff member will never change cares to patients due to racial profiling. Attempted to identify which medical office patient received care from in regards to broken 5th finger. Patient states he was seen at [facility]. Call placed to that office and no records of visit. Then states that he seen at [facility]. Call placed to that office and no visit was documented. Patient continues to become agitated when this RN asks what clinic was used. Finally admits that he received care at [facility]. Apt scheduled for ortho on 09/12/16. Patient notified and verbalizes that he is upset that apt is later than he wanted. States "fuck [facility]. You don't want to help me. Everyone is here!" Security called and standing at [facility] for safety. Patsy LOGAN notified. 911 notified. Addendum: 08/22/16 at 1251 by ELIAZAR CALDWELL RN Patient given personal medications from pharmacy. Patsy LOGAN, and [facility] PD as witness that patient received discharge instructions and personal medications. Ambulated off of unit with officer and security rover.
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
== END 2016-08-22 12:50 | disposition home or self-care (01) | DRG 139 ==
LOC: SED 19:06 → MPC 22:42
PROVIDERS: ADMIT Specialist; ATTEND Specialist
DX: J11.08 Influenza due to unidentified influenza virus with specified pneumonia (principal); E87.1 Hypo-osmolality and hyponatremia; R04.2 Hemoptysis; F17.200 Nicotine dependence, unspecified, uncomplicated; F10.10 Alcohol abuse, uncomplicated; Z79.51 Long term (current) use of inhaled steroids; J13 Pneumonia due to Streptococcus pneumoniae

== ENCOUNTER 2016-08-24 08:58 | Emergency (ER) | payer OTHER ==
[~2016-08-24] VITALS: Ht 175.3 cm; Wt 63.6 kg
[~2016-08-24 08:58] MED LIST changes: +AMOX500T2 PO; +BUSP5TAB3 PO; +HYDR-4003 PO; -LORA-303 PO; -MIRT15TA PO; +ONDA4TAB12 PO
[2016-08-24 09:03] VITALS: BP 151/86; PULSE 99; RESP 18; O2SAT 96
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
[2016-08-24] MEDS ORDERED: 0.9% Sodium Chloride 1,000 ML IV ONE (09:33)
[2016-08-24] MEDS ORDERED: Albuterol-Ipratropium 3 mL Inhalation Solution NEB ONE (09:35)
[2016-08-24] MEDS ORDERED: Albuterol 2.5 mg/3 mL Inhalation Solution NEB ONE (09:35)
[2016-08-24] MEDS ORDERED: MethylprednisoLONE Sodium Succinate 62.5 mg/mL 2 mL Inj IVPUSH ONE (09:35)
[2016-08-24] MEDS ORDERED: Ondansetron 2 mg/mL 2 mL Inj IVPUSH ONE (09:40)
[2016-08-24 10:15] VITALS: PULSE 87; RESP 18; O2SAT 95
[2016-08-24 10:25] LABS: BASOPHILS % (AUTO) 0.2 % (0-3); EOSINOPHILS % (AUTO) 0 % (0-5); MONOCYTES % (AUTO) 3.9 % (4-12); Mean Corpuscular Hemoglobin 30.8 pg (27.0-35.0); Mean Corpuscular Volume 88.6 fL (81-100); NEUTROPHILS % (AUTO) 82.2 % (40-74); Platelet Count 316 bil/L (150-400)
--- NOTE | 2016-08-24 10:37 | DRSVH ---
PROCEDURE: X-RAY CHEST, TWO VIEWS ([id number]) INDICATIONS: chest pain, shortness of breath, cough TECHNIQUE: 2 views of the chest were acquired. COMPARISON: [facility], CR, XR CHEST 1VW (PORTABLE), 08/17/2016, 23:10. [facility], CR, XR CHEST 2VW, 08/17/2016, 12:00. FINDINGS: Surgical changes and devices: None. Lungs and pleura: No pleural effusions or pneumothorax. There are decreased air space opacities in the right lower lobe consistent with resolving consolidation. No new consolidation. Mediastinum: Mediastinal contours are normal. Heart size is normal. Bones and chest wall: No suspicious bony abnormalities. Soft tissues appear unremarkable. IMPRESSION: 1. Resolving consolidation in the right lower lobe. Dictated by: Terence Pérez M.D. on 08/24/2016 at 10:33 Approved by: Terence Pérez M.D. on 08/24/2016 at 10:33
[2016-08-24 10:54] LABS: TROPONIN T < 0.010 ug/L (0.0-0.011)
[2016-08-24] MEDS ORDERED: Albuterol HFA 60 Puff 8 Gm Inhaler INHALATION ONE (11:05)
[2016-08-24 12:18] VITALS: BP 133/61; PULSE 77; RESP 16
[2016-08-24 12:44] LABS: APPEARANCE,URINE CLEAR (CLEAR,HAZY); COLOR,URINE YELLOW (YELLOW); OCCULT BLOOD,URINE NEGATIVE (NEGATIVE); PH,URINE 7.5 (5.0-8.0); UROBILINOGEN,URINE NORMAL (NORMAL)
[2016-08-24 17:41] VITALS: BP 134/66; PULSE 89; RESP 18; O2SAT 96
[2016-08-24] MEDS ORDERED: Ondansetron 2 mg/mL 2 mL Inj ONE (22:14)
[2016-08-25] MEDS ORDERED: Ondansetron 2 mg/mL 2 mL Inj IVPUSH ONE (05:05)
[2016-08-25 05:33] VITALS: BP 116/81; PULSE 78; RESP 18; O2SAT 97
[2016-08-25 07:10] VITALS: BP 114/80; PULSE 81; RESP 15; O2SAT 96
[2016-08-25 08:08] VITALS: BP 114/80; PULSE 81; RESP 15; O2SAT 96
== END 2016-08-25 07:55 ==
LOC: SED 08:58
DX: F32.9 Major depressive disorder, single episode, unspecified (principal); R45.851 Suicidal ideations; R06.2 Wheezing; R05 Cough; R53.81 Other malaise; I10 Essential (primary) hypertension; J45.909 Unspecified asthma, uncomplicated; K21.9 Gastro-esophageal reflux disease without esophagitis; Z86.59 Personal history of other mental and behavioral disorders; Z90.49 Acquired absence of other specified parts of digestive tract; F17.200 Nicotine dependence, unspecified, uncomplicated; Z59.0 Homelessness
CPT/HCPCS: 36415; 71020; 80053; 81000; 82075; 82308; 83605; 83880; 84443; 84484; 85025; 87040; 93005; 94640; 94664; 96361; 96372; 96374; 96375; 96376; 99285; J2060; J2405; J2930; J7030; J7613; J7620

== ENCOUNTER 2016-10-25 09:46 | Emergency (ER) | payer OTHER ==
[~2016-10-25] VITALS: Ht 175.3 cm; Wt 72.7 kg
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
[2016-10-25] MEDS ORDERED: Haloperidol 5 mg/mL Inj ONE (09:57)
[2016-10-25] MEDS ORDERED: Haloperidol 5 mg/mL Inj IM ONE (10:00)
[2016-10-25 10:22] VITALS: BP 147/99; PULSE 70; RESP 16; O2SAT 100
[2016-10-25 10:26] LABS: BASOPHILS % (AUTO) 0.3 % (0-3); EOSINOPHILS % (AUTO) 0.2 % (0-5); MONOCYTES % (AUTO) 7.6 % (4-12); Mean Corpuscular Hemoglobin 31.2 pg (27.0-35.0); NEUTROPHILS % (AUTO) 81.3 % (40-74); Platelet Count 198 bil/L (150-400)
[2016-10-25] MEDS ORDERED: ONDA4TAB9 PO (14:18)
[2016-10-25 14:49] VITALS: BP 138/86; PULSE 72; RESP 15; O2SAT 100
== END 2016-10-25 14:45 | disposition home or self-care (01) ==
LOC: EDUNIT# 09:46 → EDBD 09:46 → SED 09:46
DX: F43.22 Adjustment disorder with anxiety (principal); R11.10 Vomiting, unspecified; F12.90 Cannabis use, unspecified, uncomplicated; G89.4 Chronic pain syndrome; F17.200 Nicotine dependence, unspecified, uncomplicated
CPT/HCPCS: 36415; 80053; 82075; 83690; 84443; 85025; 96372; 99284; J1630; J2060

== ENCOUNTER 2016-11-24 18:15 | Emergency (ER) | payer OTHER ==
[~2016-11-24] VITALS: Ht 172.7 cm; Wt 68.2 kg
[~2016-11-24 18:15] MED LIST changes: +ONDA4TAB9 PO
[2016-11-24 18:21] VITALS: BP 163/111; PULSE 73; RESP 16; O2SAT 100
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
[2016-11-24] MEDS ORDERED: Ondansetron 2 mg/mL 2 mL Inj IVPUSH PRN (18:40)
[2016-11-24 18:48] LABS: BASOPHILS % (AUTO) 0.7 % (0-3); EOSINOPHILS % (AUTO) 1.6 % (0-5); MONOCYTES % (AUTO) 6.5 % (4-12); Mean Corpuscular Hemoglobin 30.8 pg (27.0-35.0); Mean Corpuscular Volume 90.2 fL (81-100); NEUTROPHILS % (AUTO) 63.4 % (40-74); Platelet Count 211 bil/L (150-400)
[2016-11-24 19:08] LABS: TROPONIN T < 0.010 ug/L (0.0-0.011)
[2016-11-24] MEDS ORDERED: Haloperidol 5 mg/mL Inj IVPUSH ONE (19:15)
[2016-11-24] MEDS: 0.9% Sodium Chloride 1,000 ML IV SCH ×2 (19:17→21:32)
--- NOTE | 2016-11-24 20:41 | DRSVH ---
PROCEDURE: CT BRAIN WITHOUT CONTRAST ([id number]) INDICATIONS: altered mental status, intoxicated TECHNIQUE: Noncontrast 4.5 mm thick angled axial sections acquired from the foramen magnum to the vertex, with c oronal reformats. COMPARISON: None. FINDINGS: Image quality: Excellent. CSF spaces: Basal cisterns are patent. No extra-axial fluid collections. The ventricles are symmet bryant in size and shape. Brain: No intracranial bleeds or masses. There is cerebral volume loss for age, with resultant vent ricular and sulcal prominence. There are periventricular and deep white matter chronic small vessel ischemic changes. There is intracranial internal carotid artery atherosclerosis. Skull and face: Calvarium and visualized facial bones appear intact, without suspicious lesions. Sinuses: Lateral ethmoid and maxillary sinus equivocal thickening. The chest right maxillary sinus is opacified. The mastoids are clear. IMPRESSION: 1. No acute intracranial abnormalities. 2. Bilateral ethmoid and maxillary sinus disease. Dictated by: Renée Dunlap M.D. on 11/24/2016 at 20:39 Approved by: Renée Dunlap M.D. on 11/24/2016 at 20:40
--- NOTE | 2016-11-24 20:47 | DRSVH ---
PROCEDURE: CT ABDOMEN AND PELVIS WITH CONTRAST ([id number]) INDICATIONS: abdominal pain, ?pancreatitis TECHNIQUE: After the administration of intravenous contrast, 5 mm thick sections acquired from the diaphragm to the symphysis. 5 mm coronal and sagittal reformats were acquired. For radiation dose reduction, the following was used: automated exposure control, adjustment of mA and/or kV according to patient jhon e. COMPARISON: [facility], CT, ABD/PELVIS W/CON (PN), 01/09/2015, 17:57. FINDINGS: Image quality: Excellent. ABDOMEN: Lung bases: Lung bases are clear. Heart size is normal. There is a small hiatal hernia. Solid organs: Liver and spleen are normal in size and enhancement. Gallbladder is removed. Biliary system is non dilated. Pancreas enhances normally. No adrenal nodules. Kidneys demonstrate normal size and enhancement, without hydronephrosis. Peritoneum and bowel: Bowel loops demonstrate normal wall thickness and caliber. A normal or abnorm al appendix is not definitively identified. No free fluid or air. Nodes and vessels: No retroperitoneal or mesenteric adenopathy by size criteria. Aorta and inferior vena cava are normal in size. Miscellaneous: No ventral hernias. PELVIS: Genitourinary: Bladder wall thickness is normal. Miscellaneous: No inguinal hernias or adenopathy. Bones: No suspicious bony lesions. No vertebral body compression fractures. There is grade 1 anter olisthesis of L5 over S1 secondary to lateral pars defects at L5. IMPRESSION: 1. No acute intra-abdominal process 2. A small hiatal hernia. 3. Cholecystectomy. 4. 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 Dictated by: Renée Dunlap M.D. on 11/24/2016 at 20:40 Approved by: Renée Dunlap M.D. on 11/24/2016 at 20:45
[2016-11-24 22:05] VITALS: BP 159/103; PULSE 93; RESP 12; O2SAT 93
[2016-11-25] MEDS ORDERED: Sodium Chloride LOK Flush 10 mL Syringe IVFLUSH SCH (00:30)
[2016-11-25] MEDS ORDERED: _Albuterol-HFA 60 Puff Inhaler INHALATION PRN (01:40)
[2016-11-25] MEDS ORDERED: Pantoprazole 4 mg/mL 10 mL Inj IVPUSH ONE (02:40)
[2016-11-25 03:02] VITALS: BP 130/115; PULSE 85; RESP 18; O2SAT 96
[2016-11-25] MEDS ORDERED: ONDA8TAB10 PO (03:48)
== END 2016-11-25 03:51 | disposition home or self-care (01) ==
LOC: SED 18:15
DX: F10.10 Alcohol abuse, uncomplicated (principal); F43.0 Acute stress reaction; G43.A0 Cyclical vomiting, in migraine, not intractable; R03.0 Elevated blood-pressure reading, without diagnosis of hypertension; F17.200 Nicotine dependence, unspecified, uncomplicated; Z59.0 Homelessness
CPT/HCPCS: 36415; 70450; 74177; 80053; 83690; 84443; 84484; 85014; 85018; 85025; 93005; 96361; 96374; 96375; 99285; G0480; J1200; J1630; J2060; J2405; J7030; Q9967

== ENCOUNTER 2016-12-13 10:49 | Emergency (ER) | payer OTHER ==
[~2016-12-13] VITALS: Ht 172.7 cm; Wt 68.2 kg
[~2016-12-13 10:49] MED LIST changes: +ONDA8TAB10 PO
[2016-12-13 11:15] VITALS: BP 135/92; PULSE 72; RESP 16; O2SAT 97
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
[2016-12-13 12:10] VITALS: BP 126/81; PULSE 72; RESP 16; O2SAT 94
== END 2016-12-13 12:11 | disposition home or self-care (01) ==
LOC: SED 10:49
DX: K08.89 Other specified disorders of teeth and supporting structures (principal); F17.200 Nicotine dependence, unspecified, uncomplicated; Z59.0 Homelessness; Z98.818 Other dental procedure status
CPT/HCPCS: 96372; 99283; J1885

== ENCOUNTER 2017-01-06 22:34 | Emergency (ER) | payer OTHER ==
[~2017-01-06] VITALS: Ht 175.3 cm; Wt 72.7 kg
[~2017-01-06 22:34] MED LIST changes: -ALBU18HF INH; -AMOX500T2 PO; -BECL8.7A6 INH; -BUSP5TAB3 PO; -HYDR-4003 PO; -HYDR-656 PO; -MIRT15TA6 PO; -ONDA4TAB12 PO; -ONDA4TAB9 PO; -ONDA8TAB10 PO
[2017-01-06 22:38] VITALS: BP 190/100; PULSE 74; RESP 23; O2SAT 98
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
[2017-01-06] MEDS ORDERED: 0.9% Sodium Chloride 1,000 ML IV ONE (22:57)
[2017-01-06] MEDS ORDERED: Pantoprazole 4 mg/mL 10 mL Inj IVPUSH ONE (23:00)
[2017-01-06] MEDS: Ondansetron 2 mg/mL 2 mL Inj IVPUSH PRN (23:16)
[2017-01-06] MEDS ORDERED: Haloperidol 5 mg/mL Inj IVPUSH ONE (23:25)
[2017-01-07 00:32] VITALS: BP 161/106; PULSE 76; RESP 18; O2SAT 98
[2017-01-07 01:25] LABS: BASOPHILS % (AUTO) 0.1 % (0-3); EOSINOPHILS % (AUTO) 0.1 % (0-5); MONOCYTES % (AUTO) 10.5 % (4-12); Mean Corpuscular Hemoglobin 31.2 pg (27.0-35.0); Mean Corpuscular Volume 88.2 fL (81-100); NEUTROPHILS % (AUTO) 82.2 % (40-74); Platelet Count 181 bil/L (150-400)
[2017-01-07 01:52] LABS: Magnesium 1.4 mg/dL (1.6-2.6)
[2017-01-07 04:26] VITALS: BP 167/100; PULSE 75; RESP 20; O2SAT 98
[2017-01-07] MEDS ORDERED: Ondansetron 2 mg/mL 2 mL Inj IVPUSH PRN (05:20)
[2017-01-07] MEDS ORDERED: 0.9% Sodium Chloride 1,000 ML IV ONE (05:20)
[2017-01-07] MEDS ORDERED: ONDA8TAB10 PO (05:24)
[2017-01-07] MEDS: Ondansetron 2 mg/mL 2 mL Inj IVPUSH PRN (05:45)
[2017-01-07 06:19] VITALS: BP 167/100; PULSE 75; RESP 20; O2SAT 98
== END 2017-01-07 06:19 | disposition home or self-care (01) ==
LOC: SED 22:34
DX: F43.0 Acute stress reaction (principal); F10.20 Alcohol dependence, uncomplicated; F12.20 Cannabis dependence, uncomplicated; F41.9 Anxiety disorder, unspecified; J45.909 Unspecified asthma, uncomplicated; K21.9 Gastro-esophageal reflux disease without esophagitis; I10 Essential (primary) hypertension; M54.9 Dorsalgia, unspecified; G89.29 Other chronic pain; F17.200 Nicotine dependence, unspecified, uncomplicated
CPT/HCPCS: 36415; 80053; 81002; 82075; 83690; 83735; 85025; 96361; 96374; 96375; 96376; 99285; J1200; J1630; J2060; J2405; J7030